=== PATIENT | female | born 1980 | race Two or more races ===

== ENCOUNTER 2022-03-28 06:20 | Inpatient (IN) | payer OTHER ==
[2022-03-28] MEDS ORDERED: CLINDAMYCIN 900 MG PREMIX IVPB 900 MG/50 ML BAG IVPB ONE ×2 (07:54→08:07)
[2022-03-28] MEDS ORDERED: ELECTROLYTE-148 SOLN 1,000 ML IV SCH (08:00)
[2022-03-28 08:05] VITALS: BMI 31.8
[2022-03-28] MEDS ORDERED: CITRIC ACID/SODIUM CITRATE 30 ML UNIT-DOSE CUP PO ONE (08:12)
[2022-03-28 08:54] LABS: BASO % 0.7 % (0-2.0); EOS % 0.9 % (0-4.5); HEMATOCRIT 39.5 % (32.4-45.2); HEMOGLOBIN 13.5 GM/dL (10.7-15.3); LYMPH % 21.1 % (8-40); MCH 31.4 pg (25.7-33.7); MCHC 34.2 g/dl (32.0-36.0); MEAN CELL VOLUME 91.8 fl (80-96); MEAN PLT VOLUME 10.3 fl (7.5-11.1); MONO % 6.8 % (3.8-10.2); NEUT % 70.5 % (42.8-82.8); PLATELET COUNT 186 10^3/uL (134-434); RBC 4.31 M/mm3 (3.60-5.2); WHITE BLOOD COUNT 10.5 K/mm3 (4.0-10.0)
[2022-03-28] MEDS ORDERED: GENTAMICIN INJECTION 350 MG in DEXTROSE 5%-WATER - 250 ML IVPB ONE (10:00)
[2022-03-28 10:57] LABS: HIV INTERPRETATION NEGATIVE (NEGATIVE)
[2022-03-28] MEDS ORDERED: ACETAMINOPHEN 325 MG TABLET (FP) PO PRN ×2 (12:05→12:33)
[2022-03-28] MEDS ORDERED: morphine SULFATE/PF 1 MG/2 ML (2cc Syringe - QUVA) SPIN ONE (12:05)
[2022-03-28] MEDS ORDERED: ONDANSETRON 4 MG/2 ML VIAL IVPUSH PRN (12:05)
[2022-03-28] MEDS ORDERED: IBUPROFEN 600 MG TABLET (FP) PO PRN (12:05)
[2022-03-28] MEDS ORDERED: METHYLERGONOVINE MALEATE 0.2 MG/1 ML AMP IM PRN (12:33)
[2022-03-28] MEDS: OXYTOCIN 20 UNITS in 0.9% NS 20 UNIT/1,000 ML INFUS.BAG IV SCH ×2 (12:55→20:59)
[2022-03-28 13:04] LABS: CORD BASE EXCESS -1.3 mmol/L (0-2); CORD HCO3 24.8 mmHg (20-29); CORD pH 7.34 (7.14-7.44)
[2022-03-28 13:05] LABS: CORD HCO3 26.1 mmHg (20-29); CORD PCO2 68.1 mmHg (30-78); CORD pH 7.201 (7.14-7.44)
[2022-03-28] MEDS ORDERED: CLINDAMYCIN 600MG PREMIX IVPB 600 MG/50 ML BAG IVPB SCH (16:00)
[2022-03-28] MEDS: CLINDAMYCIN 600MG PREMIX IVPB 600 MG/50 ML BAG IVPB SCH (21:00)
[2022-03-29] MEDS ORDERED: oxyCODONE HCL 5 MG TABLET PO PRN ×2 (00:34)
[2022-03-29] MEDS: CLINDAMYCIN 600MG PREMIX IVPB 600 MG/50 ML BAG IVPB SCH ×2 (03:31→10:58)
[2022-03-29 08:12] LABS: BASO % 0.3 % (0-2.0); EOS % 0.4 % (0-4.5); HEMATOCRIT 34.1 % (32.4-45.2); HEMOGLOBIN 11.4 GM/dL (10.7-15.3); LYMPH % 19.8 % (8-40); MCH 31.5 pg (25.7-33.7); MCHC 33.5 g/dl (32.0-36.0); MEAN CELL VOLUME 94.2 fl (80-96); MONO % 6.9 % (3.8-10.2); NEUT % 72.6 % (42.8-82.8); PLATELET COUNT 161 10^3/uL (134-434); RBC 3.62 M/mm3 (3.60-5.2); RDW 13.7 % (11.6-15.6); WHITE BLOOD COUNT 12.4 K/mm3 (4.0-10.0)
[2022-03-29] MEDS ORDERED: FAMOTIDINE 20 MG/50 ML IVPB 20 MG/50 ML MG IVPB ONE (10:00)
[2022-03-29] MEDS: ENOXAPARIN NA (PORCINE) 40 MG/0.4 ML DISP.SYRIN SQ SCH (10:18)
[2022-03-29] MEDS ORDERED: BISACODYL 10 MG SUPP.RECT RC PRN (12:34)
[2022-03-29] MEDS: IBUPROFEN 600 MG TABLET (FP) PO PRN (20:16)
[2022-03-29 22:14] VITALS: RESP 18
[2022-03-30] MEDS: IBUPROFEN 600 MG TABLET (FP) PO PRN ×2 (09:00→21:03)
[2022-03-30] MEDS: SIMETHICONE 80 MG TAB.CHEW (FP) PO PRN ×2 (09:01→21:02)
[2022-03-30] MEDS: ENOXAPARIN NA (PORCINE) 40 MG/0.4 ML DISP.SYRIN SQ SCH (10:49)
[2022-03-31] MEDS: ENOXAPARIN NA (PORCINE) 40 MG/0.4 ML DISP.SYRIN SQ SCH (09:33)
[2022-03-31 10:58] VITALS: BP 117/81; PULSE 87; TEMP 98.2
[2022-03-31] MEDS: IBUPROFEN 600 MG TABLET (FP) PO PRN (12:38)
[2022-03-31 14:27] LABS: BASO % 0.7 % (0-2.0); EOS % 1.8 % (0-4.5); HEMATOCRIT 37.5 % (32.4-45.2); HEMOGLOBIN 12.6 GM/dL (10.7-15.3); LYMPH % 15.7 % (8-40); MCH 31.3 pg (25.7-33.7); MCHC 33.7 g/dl (32.0-36.0); MEAN CELL VOLUME 92.8 fl (80-96); MEAN PLT VOLUME 9.4 fl (7.5-11.1); MONO % 4.7 % (3.8-10.2); NEUT % 77.1 % (42.8-82.8); PLATELET COUNT 217 10^3/uL (134-434); RBC 4.04 M/mm3 (3.60-5.2); RDW 13.5 % (11.6-15.6); WHITE BLOOD COUNT 13.9 K/mm3 (4.0-10.0)
== END 2022-03-31 15:40 | disposition home or self-care (01) | DRG 540 ==
LOC: JLDR 06:20 → J3W 14:32
PROVIDERS: ADMIT Obstetrics & Gynecology; ATTEND Obstetrics & Gynecology
PROC: 10D00Z1 Extraction of Products of Conception, Low, Open Approach (ICD-10-PCS; principal; 2022-03-28)
PROC: 0DNW0ZZ Release Peritoneum, Open Approach (ICD-10-PCS; 2022-03-28)
DX: O32.8XX0 Maternal care for other malpresentation of fetus, not applicable or unspecified (principal); O34.13 Maternal care for benign tumor of corpus uteri, third trimester; D25.9 Leiomyoma of uterus, unspecified; Z3A.39 39 weeks gestation of pregnancy; Z37.0 Single live birth; O69.81X0 Labor and delivery complicated by cord around neck, without compression, not applicable or unspecified; O99.62 Diseases of the digestive system complicating childbirth; K66.0 Peritoneal adhesions (postprocedural) (postinfection)
CPT/HCPCS: 36415; 36600; 80048; 82803; 85025; 85610; 85730; 86780; 86850; 86900; 86901; 87389; 88307-TC; C9803-CS; U0003; U0005